=== PATIENT | female | born 1970 | race Caucasian/White ===

== ENCOUNTER 2017-04-01 23:22 | Emergency (ER) | payer OTHER ==
[2017-04-02 05:31] VITALS: BP 106/78
== END 2017-04-02 05:31 | disposition home or self-care (01) ==
LOC: ED 23:22 → EDBD 23:22 → ED 04-02 05:31
DX: F10.129 Alcohol abuse with intoxication, unspecified (principal)
CPT/HCPCS: 83880; G0480; J7030

== ENCOUNTER 2017-04-15 16:13 | Emergency (ER) | payer OTHER ==
[~2017-04-15] VITALS: Ht 162.6 cm; Wt 64.6 kg
[2017-04-15 17:56] VITALS: BP 111/78
== END 2017-04-15 17:56 | disposition home or self-care (01) ==
LOC: ED 16:13
DX: L02.01 Cutaneous abscess of face (principal); F17.210 Nicotine dependence, cigarettes, uncomplicated
CPT/HCPCS: 90715; J1885; J2001

== ENCOUNTER 2017-05-10 05:59 | Emergency (ER) | payer OTHER ==
[2017-05-10 10:41] VITALS: BP 134/79
== END 2017-05-10 10:41 | disposition home or self-care (01) ==
LOC: ED 05:59
DX: T62.91XA Toxic effect of unspecified noxious substance eaten as food, accidental (unintentional), initial encounter (principal); Y92.89 Other specified places as the place of occurrence of the external cause
CPT/HCPCS: Q0162